=== PATIENT | female | born 1985 | race Two or more races ===

== ENCOUNTER 2018-03-13 14:25 | Emergency (ER) | payer OTHER ==
[2018-03-13 14:32] VITALS: BP 151/99
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
== END 2018-03-13 15:08 | disposition home or self-care (01) ==
DX: S16.1XXA Strain of muscle, fascia and tendon at neck level, initial encounter (principal); V49.40XA Driver injured in collision with unspecified motor vehicles in traffic accident, initial encounter; Y92.410 Unspecified street and highway as the place of occurrence of the external cause; Y93.89 Activity, other specified; Y99.8 Other external cause status